=== PATIENT | male | born 1995 | race Two or more races ===

== ENCOUNTER 2017-03-16 01:47 | Emergency (ER) | payer OTHER ==
[~2017-03-16] VITALS: Ht 177.8 cm; Wt 78.6 kg
[2017-03-16 01:49] VITALS: BP 144/87
== END 2017-03-16 03:52 | disposition home or self-care (01) ==
LOC: ED 03:01
DX: R07.2 Precordial pain (principal)
CPT/HCPCS: 71020; 93005; 99284